=== PATIENT | female | born 1960 | race Caucasian/White ===

== ENCOUNTER → 2018-07-08 10:24 | Emergency (ER) | payer BC ==
[~2018-07-08 10:24] MED LIST: DiMENhydriNATE IV* 50 MG/ML VIAL IV PUSH ONE; Ketorolac INJ* 30 MG/ML 1 ML VIAL IV PUSH ONE; Lidocaine 1%* 5 ML VIAL ONE; Metoclopramide IV* 5 MG/ML 2 ML VIAL IV ONE; NS 0.9% 1000 ML* 1,000 ML IV ONE
--- OUTSIDE RECORDS SUMMARY | 2018-07-08 11:15 | XMS REPORT | Continuity of Care Document ---
:1960 External Reference #:[id number] Author Name Rikcy Crystal M.D. Address [address] [place] [address] Care Team Providers Name Role Phone Lucia Ye M.D. Primary Care Physician Unavailable Payers Type Date Identification Numbers Payment Provider Subscriber Policy Number: [id number] [place] [employer] Wendy Morel PayID: [id number] [address] [place] [address] Advance Directives Description No Information Available Problems Date Description Provider Status Onset: H/O: hypothyroidism Active Onset: 07/06/2018 Headache Ricky Crystal M.D. 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 ETOH Use Currently consumes alcohol Tobacco Use Start: Unknown End: Unknown Patient is a former smoker Recreational Drug Use Denies Drug Use Smoking Status Reviewed: 07/06/18 Patient is a former smoker Allergies, Adverse Reactions, Alerts Description No Known Drug Allergies Medications Medication Date Status Form Strength Qnty SIG Indications Ordering Provider Amoxicillin Active Capsules 500mg Unknown 000 Montelukast Active Tablets 10mg Unknown Sodium 000 Levothyroxine Active Tablets 175mcg Take 1 Unknown Sodium 000 Tablet By Mouth Daily Ibuprofen Active Tablets 200mg 3 tab at Unknown 000 bedtime po Immunizations Description No Information Available Vital Signs Description No Information Available Results Description No Information Available Procedures Description No Information Available Encounters Description No Information Available Plan of Treatment 07/06/2018 - Ricky Crystal M.D.R51 HeadacheComments:Smoking can increase the risk of developing or worsening any eye related disease, as well as affect your overall health. If you are a smoker, we strongly recommend that you quit.If you are not a smoker, we strongly recommend that you do not start. You have a headache that is not eye related. Please follow up with your primary care doctor. YOUR EYE EXAM IS HEALTHY.IN PARTICULAR, THERE IS NO EDEMA OFTHE OPTIC NERVES AND I CAN SEE GOOD BLOOD FLOW IN THE RETINAL BLOOD VESSELS ( SPONTANEOUS VENOUS PULSATIONS ARE PRESENT)I DO NOT SEE EVIDENCE OF INCREASED INTRACRANIAL PRESSURE BASED ON YOUR EYE EXAMBASED ON YOUR SYMPTOMS, I THINK IT IS GOOD TO FOLLOW THROUGH WITH THE BRAIN IMAGING. I WOULD PLAN TO RECHECK YOUR EYES IN 2 WEEKS. CALL THOUGH IF THERE IS ANY FURTHER CHANGES IN THE VISIONFollow up:2 Week Follow Up
--- NOTE | 2018-07-08 11:32 | ED ---
Headache - HPI Summary HPI Summary: This patient is a 58 year old female presenting to [facility] accompanied by with a chief complaint of headache and ear ringing for 3 weeks. Patient states that she also experiences neck stiffness and double vision. The headache is mostly frontal, but worse at the sides of her head. She also states that she is starting to experience numbness in the upper part of the face bilaterally. Patient has already received CT, CTA Head/Neck yesterday with Dr. Ye. The pain is rated 6/10 in severity. Symptoms aggravated by nothing. Symptoms alleviated by nothing. Patient additionally reports nausea. Patient denies SOB, fever. Patient and fear that this may be meningitis. Patient additionally notes that she was bitten by a mouse 6 weeks ago and fears it may also be related. - History Of Current Complaint Chief Complaint: EDHeadache Stated Complaint: RINGING IN EARS/HEADACHE/NUMBNESS ON RT SIDE FACE Time Seen by Provider: 07/08/18 10:35 Hx Obtained From: Patient Hx Last Menstrual Period: menopausal Onset/Duration: Gradual Onset, Started weeks ago, Still Present Initially Headache Was: Initial Pain Scale(0-10)= - 6 Timing: Constant Location of Headache: Frontal Aggravating Factor: Nothing Associated Signs And Symptoms: Negative - fever, SOB, Nausea - Allergies/Home Medications Allergies/Adverse Reactions: Allergies Allergy/AdvReac Type Severity Reaction Status Date / Time No Known Allergies Allergy Verified 07/07/18 13:45 Home Medications: Home Medications Amoxicillin 500 mg PO BID 07/08/18 [History Confirmed 07/08/18] Montelukast Sodium TAB* [Singulair 10 MG TAB*] 10 mg PO DAILY 07/08/18 [History Confirmed 07/08/18] PMH/Surg Hx/FS Hx/Imm Hx Previously Healthy: No Endocrine/Hematology History: Reports: Hx Thyroid Disease Denies: Hx Anticoagulant Therapy, Hx Diabetes Cardiovascular History: Denies: Hx Hypertension, Hx Pacemaker/ICD Respiratory History: Reports: Hx Asthma - CHILD, Other Respiratory Problems/ Disorders - states fluid lungs after surgery 06/05 History: Denies: Hx Renal Disease Musculoskeletal History: Reports: Other Musculoskeletal History - osteoarthritis left knee Denies: Hx Rheumatoid Arthritis, Hx Osteoporosis Sensory History: Denies: Hx Hearing Aid Psychiatric History: Denies: Hx Panic Disorder, Hx Substance Abuse - Cancer History Hx Chemotherapy: No Hx Radiation Therapy: No - Surgical History Surgery Procedure, Year, and Place: appy 06/10/12 ruptured. right wrist. spinal fusion. left shoulder. Right Total Knee Replacement - Immunization History Date of Influenza Vaccine: 03/2017 Infectious Disease History: No Infectious Disease History: Reports: Hx Hepatitis Denies: History Other Infectious Disease, Traveled Outside the [place] in Last 30 Days - Family History Known Family History: Negative: Cardiac Disease, Diabetes, Blood Disorder, Other - CA - Social History Lives: With Family Alcohol Use: Daily Alcohol Amount: Glass of wine with dinner Hx Substance Use: No Substance Use Type: Reports: None Hx Tobacco Use: Yes Smoking Status (MU): Former Smoker Review of Systems Negative: Fever ENT: Other - ear ringing Negative: Shortness Of Breath Positive: Nausea Neurological: Other - double vision Positive: Headache All Other Systems Reviewed And Are Negative: Yes Physical Exam - Summary Physical Exam Summary: Appearance: Well appearing, no pain distress Skin: warm, dry, reflects adequate perfusion Head/face: normal Eyes: EOMI, HERMAN ENT: mucous membranes moist Neck: supple, non-tender Respiratory: CTA, breath sounds present Cardiovascular: RRR, pulses symmetrical Abdomen: non-tender, soft Bowel Sounds: present Musculoskeletal: normal, strength/ROM intact Neuro: normal, sensory motor intact, A&Ox3, no nuchal rigidity Triage Information Reviewed: Yes Vital Signs On Initial Exam: Initial Vitals Temp Pulse Resp BP Pulse Ox 97.4 F 63 16 129/67 97 07/08/18 10:26 07/08/18 10:26 07/08/18 10:26 07/08/18 10:26 07/08/18 10:26 Vital Signs Reviewed: Yes Procedures - Lumbar Puncture Midline Position: Lateral Decubitus Aseptic Technique: Lidocaine Anesthesia Used: 1.0% Lido - 10cc Spinal Needle Used: 22 Gauge Lumbar Puncture Note: l3-l4, 6ccs of clear fluid Diagnostics - Vital Signs Vital Signs Temp Pulse Resp BP Pulse Ox 07/08/18 10:26 97.4 F 63 16 129/67 97 - Laboratory Diagnostic Studies Comment: CSF negative for organisms, glucose, protein negative. 1 WBC, RBC. Lab Statement: Any lab studies that have been ordered have been reviewed, and results considered in the medical decision making process. Re-Evaluation - Re-Evaluation First Eval Re-Evaluation Time: 12:23 Change: Improved Comment: Patient's condition is much improved. Her headache is much better and she agrees to be discharged. Headache Course/Dx - Course Course Of Treatment: Nurse's notes reviewed. Patient with CT/CTA of the head and neck yesterday and were negative. Chronic tinnitus for 1 month. Headache recently. No meningismus here. LP was performed and negative for inflammatory findings. Lyme CSF sent. This is pending. Treated headache with full relief. Discharged to follow up with primary care physician and neurology. - Diagnoses Differential Diagnosis/HQI/PQRI: Meningitis, Migraine, Sinus Headache, Tension Headache, Viral Syndrome Provider Diagnoses: Tinnitus, Headache Discharge - Sign-Out/Discharge Documenting (check all that apply): Patient Departure - Discharge Plan Condition: Stable Disposition: HOME Prescriptions: Promethazine TAB* [Phenergan Tab*] 25 mg PO Q8H PRN #20 tab PRN Reason: headache/nausea Patient Education Materials: Acute Headache (ED), Tinnitus (ED) Referrals: Lucia Ye MD [Primary Care Provider] - Bennie Landin MD [Medical Doctor] - Additional Instructions: Prescribed medication can cause drowsiness. If headache is severe use ibuprofen , Benadryl and caffeine along with it. Follow-up with Dr. Ye on Tuesday. She can follow the Lyme disease testing and other results. You're also given referral to Dr. Landin the neurologist. Call for an appointment. Return if worse, fevers, new symptoms, or other concerns. - Billing Disposition and Condition Condition: STABLE Disposition: Home - Attestation Statements Document Initiated by Jyoti: Yes Documenting Scribe: Vic Abel Provider For Whom Jyoti is Documenting (Include Credential): Froy Rae MD Scribe Attestation: Vic Bynum, scribed for Froy Rae MD on 07/08/18 at 1506. Scribe Documentation Reviewed: Yes Provider Attestation: The documentation as recorded by the Vic encarnacion accurately reflects the service I personally performed and the decisions made by me, Froy Rae MD Status of Scribe Document: Viewed
[2018-07-08 12:12] LABS: Body Fluid Source Cerebral Spinal
[2018-07-08 13:30] VITALS: BP 129/69
[2018-07-11 23:49] LABS: Lyme Disease Source CSF
== END | disposition home or self-care (01) ==
LOC: ED 10:24
DX: H93.19 Tinnitus, unspecified ear (principal); R51 Headache; R11.0 Nausea; Z87.891 Personal history of nicotine dependence
CPT/HCPCS: 36415; 62270; 82945; 84157; 86788; 86789; 87070; 87205; 87476; 87798; 87899; 89051; 96361; 96374; 96375; 99283; J1240; J1885; J2765

== ENCOUNTER 2018-07-23 09:08 | Emergency (ER) | payer BC ==
--- OUTSIDE RECORDS SUMMARY | 2018-07-23 09:20 | XMS REPORT | Continuity of Care Document ---
:1960 External Reference #:[id number] Author Name Ricky Crystal M.D. Address [address] [place] [address] Care Team Providers Name Role Phone Lucia Ye M.D. Primary Care Physician Unavailable Payers Type Date Identification Numbers Payment Provider Subscriber Policy Number: [id number] Staci Overton Wendy Morel PayID: [id number] [address] [place] [address] Advance Directives Description No Information Available Problems Date Description Provider Status Onset: H/O: hypothyroidism Active Onset: 07/06/2018 Headache Ricky Crystal M.D. 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 ETOH Use Currently consumes alcohol Tobacco Use Start: Unknown End: Unknown Patient is a former smoker Recreational Drug Use Denies Drug Use Smoking Status Reviewed: 07/20/18 Patient is a former smoker Allergies, Adverse Reactions, Alerts Description No Known Drug Allergies Medications Medication Date Status Form Strength Qnty SIG Indications Ordering Provider Amoxicillin Active Capsules 500mg Unknown 000 Montelukast Active Tablets 10mg Unknown Sodium 000 Levothyroxine Active Tablets 175mcg Take 1 Unknown Sodium 000 Tablet By Mouth Daily Ibuprofen Active Tablets 200mg 3 tab at Unknown 000 bedtime po Acetazolamide Active Tablets 250mg Take 1 Unknown 000 Tablet By Mouth Twice A Day Immunizations Description No Information Available Vital Signs Description No Information Available Results Description No Information Available Procedures Date Code Description Status 07/06/2018 07498 New Patient Comprehensive Exam Completed Encounters Description No Information Available Plan of Treatment 07/20/2018 - Ricky Crystal M.D.R51 HeadacheComments:Smoking can increase the risk of developing or worsening any eye related disease, as well as affect your overall health. If you are a smoker, we strongly recommend that you quit.If you are not a smoker, we strongly recommend that you do not start. YOUR EYE EXAM IS HEALTHY, THE NERVE AND RETINA LOOK HEALTHY.IN PARTICULAR, THERE IS NO EDEMA OF THE OPTIC NERVES AND I CAN STILL SEE GOOD BLOOD FLOW IN THE RETINAL BLOOD VESSELS (SPONTANEOUS VENOUS PULSATIONS ARE PRESENT) I DO NOT SEE EVIDENCE OF INCREASED INTRACRANIAL PRESSURE BASED ON YOUR EYE EXAM KEEP YOUR APPOINTMENT WITH YOUR NEUROLOGIST. CALLTHOUGH IF THERE IS ANY FURTHER CHANGES IN THE VISION.
[2018-07-23] MEDS ORDERED: NS 0.9% 1000 ML* 1,000 ML IV ONE (10:22)
[2018-07-23] MEDS ORDERED: Ketorolac INJ* 30 MG/ML 1 ML VIAL IV PUSH ONE ×2 (10:30→13:16)
[2018-07-23] MEDS ORDERED: DiMENhydriNATE IV* 50 MG/ML VIAL IV PUSH ONE (10:31)
[2018-07-23] MEDS ORDERED: Metoclopramide IV* 5 MG/ML 2 ML VIAL IV ONE (10:31)
[2018-07-23 10:55] LABS: ABS Basophils 0 10^3/ul (0-0.2); ABS Eosinophils 0.1 10^3/ul (0-0.6); ABS Lymphocytes 1.9 10^3/ul (1.0-4.8); ABS Monocytes 0.4 10^3/ul (0-0.8); ABS Neutrophils 2.5 10^3/ul (1.5-7.7); ABS Nucleated RBC 0 10^3/ul; Eosinophil % 1.3 %; Hematocrit 39 % (35-47); Hemoglobin 13.5 g/dl (12.0-16.0); Lymphocyte % 39.1 %; Mean Corpuscular HGB Conc 35 g/dl (31-36); Mean Corpuscular Hemoglobin 32 pg (27-31); Mean Corpuscular Volume 93 fL (80-97); Mean Platelet Volume 7.8 fL (7.4-10.4); Nucleated Red Blood Cells % 0; Platelet Count 257 10^3/ul (150-450); Red Blood Count 4.17 10^6/ul (4.00-5.40); Red Cell Distribution Width 13 % (10.5-15)
[2018-07-23 11:07] LABS: Activated Partial Thrombo Time 32.4 seconds (26.0-36.3); INR 1.07 (0.77-1.02)
[2018-07-23 11:11] LABS: Albumin 3.8 g/dL (3.2-5.2); Albumin/Globulin Ratio 1.4 (1-3); BUN/Creatinine Ratio 21.1 (8-20); Calcium 8.9 mg/dL (8.6-10.3); EGFR Non-African American 108.6 (>60); Globulin 2.7 g/dL (2-4); Potassium 3.6 mmol/L (3.5-5.0); Total Bilirubin 0.5 mg/dL (0.2-1.0); Total Protein 6.5 g/dL (6.4-8.9)
[2018-07-23 11:37] LABS: Erythrocyte Sed Rate 20 mm/Hr (0-30)
[2018-07-23] MEDS ORDERED: Ondansetron INJ* 2 MG/ML VIAL IV ONE (13:16)
[2018-07-23 15:39] VITALS: BP 112/70
--- NOTE | 2018-07-23 20:19 | CONS ---
CONSULTATION REPORT: DATE OF CONSULT: 07/23/18. PATIENT OF: Dr. Lucia Ye and MARTA Watson, in the ER today.* HISTORY OF PRESENT ILLNESS: Amna is a 58-year-old right-handed woman I am asked to evaluate for a 6-week history of unusual headache. This has involved her right frontal and temporal area with going back and involves her occiput and her neck as well as there is no pain below her eye. The pain has gradually worsened over the past 6 weeks' time and now occasionally gets up to 8/10 with some photophobia, but typically is 5/10, it is often throbbing at this point occasionally. She has had 4 episodes of brief, very sharp, quick pain lasting a minute or less in that distribution. She has some photophobia with this and occasionally has some nausea. Since this began within a few days of onset of the headache, she has developed a pulsatile tinnitus on that right side and that has been constant and steady, perhaps slightly worse over the past 6 weeks. Within a week of headache onset, she has developed double vision, which she described as seeing objects one above the other rather than [id number]. This has not changed. Of note, she has been bit by a mouse about 8 weeks ago. There have been no unusual other exposures and she has been to [facility], but not out of the country recently. There has been no fever or shortness of breath. She has had an extensive workup, which I have reviewed, included a normal CTA and MRI of the orbit, face, neck with and without contrast, which I reviewed and was normal. The CT of the head and neck was normal. She has had a spinal tap with normal CSF and opening pressure, which is not clearly noted in the chart today that I could see, but the is a physician who is there and said that the opening pressure was 60. She has had an eye exam by an filling station equipment mechanic, which is not revealing. She has had Lyme studies and other tick studies that were all negative with a sed rate of 20. ERICA, rheumatoid factor a year ago, which was normal, but has not been repeated. Babesiosis study, which was negative recently. Cryptococcal antigen and West Nile studies all normal. She received 4 days of Diamox without benefit. PAST MEDICAL HISTORY: Completely benign. PAST SURGICAL HISTORY: Has had no surgeries. MEDICATIONS: She is on no medicines other than the Diamox that she has had. Recently, she has been under some stress but that has been chronic. ALLERGIES: She has no known allergies. SOCIAL HISTORY: No substance abuse. PHYSICAL EXAM: Blood pressure 119/67, pulse 69. She is afebrile. She is alert and oriented with normal speech and comprehension. Cranial nerves II through XII were intact. There was no ptosis. There was no change in sensation in her face. The only findings on ophthalmological on cranial nerves exam, she had a minor right exotropia. It is unclear whether this is new or not. When she looked down to either the right or left, she has had a double vision with objects appearing above each other; however, when looking straight ahead there was double vision side-by- side, looking up into the right there was double vision, but not when she looked up into the left. She has had no tearing by history. Motor exam revealed normal tone, strength, coordination. Tygmdv-uk-ywed is intact. Sensation intact to light touch. Reflexes were 1+ and equal. Downgoing toes. Chest: Clear. Cardiovascular: Regular rate and rhythm. Abdomen: Soft. Positive bowel sounds. She had no rashes. IMPRESSION AND PLAN: I discussed with them that this is a difficult case to sort out. It is possible that there is some problem in the cavernous sinus. It could have been missed even on MRI scan and spinal tap though these are some of the best tests. To do the CTA is also a reassuring test for many possible etiologies. I will be getting LEOBARDO and requested a PPD. We should repeat an ERICA and rheumatoid factor. I think these will be normal. Her exam is a little bit unusual in that it does not follow a clear neurologic pattern, she switches from having some double vision [id number] to double vision up and down and it is possible that this is not organically based, but may be stress related. It is hard to be sure and she does have a mild exotropia, although it is hard to know if this is new or old, the fact that when looking to the right in the direction of her exotropia, she had worse double vision on upper gaze than to the left makes me unsure of the significance of this finding. At this point, I am going to send this blood work, begin a low dose of Elavil to go to 20 mg at bedtime. This could help migrainous symptoms as well as some of the neuralgic symptoms that she is having. This may be some unusual form of a migraine with sympathetic features without the ptosis. It does not appear to be something like a Raeder's syndrome. Given the complexity of the case, I am going to have the neuro-filling station equipment mechanic, Dr Jordyn Barretoor her partner to take a look at her before proceeding further. I discussed this with family that depending on how things go, we may consider a trial of steroids, but I would not do that at this point until we get further information. Thank you for sharing her case. [id number]/[facility] #: [id number] TORSTEN
--- NOTE | 2018-07-24 05:35 | ED ---
Headache - HPI Summary HPI Summary: Patient is a 58yo F with no signficant PMH presenting to the ED with acute onset intermittent mainly frontal and R sided URBINA x 6 weeks. She was seen in the ED 2 weeks ago and LP performed. Subsequently she had a CTA and MRI both which were negative. She continues to have pulsatile tinnitus on the right side which has been present x 6 weeks. Today, she endorses 1 episode of a "pop " sensation to the R temporal area in which the tinnitus ceased and the URBINA became worse. With the episodes over the past 6 weeks, she has also been endorsing blurry vision and double vision and extreme photosensitivity. She denies recent international travel, known tick bites. She had received diamox without relief. LP opening pressure on 07/08/18 was 16 (normal) according to Butch CHUA and . - History Of Current Complaint Chief Complaint: EDHeadache Stated Complaint: HEADACHE/DOUBLE VISION/HEARD POP IN HEAD Time Seen by Provider: 07/23/18 10:09 Hx Obtained From: Patient Hx Last Menstrual Period: menopausal Onset/Duration: Sudden Onset Initially Headache Was: "Worst Headache Ever", Initial Pain Scale(0-10)= - 8 Currently Pain Is: Current Pain Scale(0-10)= - 5 Timing: Constant - with moments of reduction Character: Throbbing, Pressure Aggravating Factor: Nothing Allevating Factors: Nothing Associated Signs And Symptoms: Negative - Risk Factors SAH Risk Factors: Negative Meningitis Risk Factors: Negative SDH Risk Factors: Negative Temporal Arteritis Risk Factors: Female, - Allergies/Home Medications Allergies/Adverse Reactions: Allergies Allergy/AdvReac Type Severity Reaction Status Date / Time No Known Allergies Allergy Verified 07/07/18 13:45 PMH/Surg Hx/FS Hx/Imm Hx Previously Healthy: Yes Endocrine/Hematology History: Reports: Hx Thyroid Disease Denies: Hx Anticoagulant Therapy, Hx Diabetes Cardiovascular History: Denies: Hx Hypertension, Hx Pacemaker/ICD Respiratory History: Reports: Hx Asthma - CHILD, Other Respiratory Problems/ Disorders - states fluid lungs after surgery 06/05 History: Denies: Hx Renal Disease Musculoskeletal History: Reports: Other Musculoskeletal History - osteoarthritis left knee Denies: Hx Rheumatoid Arthritis, Hx Osteoporosis Sensory History: Denies: Hx Hearing Aid Psychiatric History: Denies: Hx Panic Disorder, Hx Substance Abuse - Cancer History Hx Chemotherapy: No Hx Radiation Therapy: No - Surgical History Surgery Procedure, Year, and Place: appy 06/10/12 ruptured. right wrist. spinal fusion. left shoulder. Right Total Knee Replacement - Immunization History Date of Influenza Vaccine: 03/2017 Hx Pertussis Vaccination: No Immunizations Up to Date: Yes Infectious Disease History: No Infectious Disease History: Reports: Hx Hepatitis Denies: History Other Infectious Disease, Traveled Outside the [place] in Last 30 Days - Family History Known Family History: Negative: Cardiac Disease, Diabetes, Blood Disorder, Other - CA - Social History Occupation: Unemployed, Employed Part-time Lives: With Family Alcohol Use: None Alcohol Amount: Glass of wine with dinner Hx Substance Use: No Substance Use Type: Reports: None Hx Tobacco Use: Yes Smoking Status (MU): Former Smoker Review of Systems Constitutional: Negative Negative: Fever, Chills, Fatigue, Skin Diaphoresis Positive: Photophobia, Blurred Vision, Diplopia. Negative: Drainage, Erythema Negative: Sore Throat, Ear Ache, Nasal Discharge Negative: Palpitations, Chest Pain Negative: Shortness Of Breath, Cough Genitourinary: Negative Positive: no symptoms reported, see HPI Positive: Bruising. Negative: Rash Positive: Headache. Negative: Weakness - Rajan problem, Paresthesia, Numbness , Syncope - is 3 All Other Systems Reviewed And Are Negative: Yes Physical Exam Triage Information Reviewed: Yes Vital Signs On Initial Exam: Initial Vitals Temp Pulse Resp BP Pulse Ox 96.9 F 66 14 127/62 97 07/23/18 09:11 07/23/18 09:11 07/23/18 09:11 07/23/18 09:11 07/23/18 09:11 Vital Signs Reviewed: Yes Appearance: Positive: Ill-Appearing, Pain Distress Skin: Positive: Skin Color Reflects Adequate Perfusion Head/Face: Positive: Normal Head/Face Inspection Eyes: Positive: EOMI, HERMAN, Conjunctiva Clear Neck: Positive: Supple, No Lymphadenopathy Respiratory/Lung Sounds: Positive: Clear to Auscultation, Breath Sounds Present Cardiovascular: Positive: RRR, Pulses are Symmetrical in both Upper and Lower Extremities. Negative: Leg Edema Left, Leg Edema Right Musculoskeletal: Positive: Normal, Strength/ROM Intact Neurological: Positive: Sensory/Motor Intact, Alert, Oriented to Person Place, Time, CN Intact II-III, Reflexes Intact, Normal Gait, Babinski Bilateral - normal, Finger to Nose - intact, Facial Symmetry, Speech Normal. Negative: Facial Droop, Slurred Speech, Dysphagia Psychiatric: Positive: Normal, Affect/Mood Appropriate AVPU Assessment: Alert - Agnes Coma Scale Best Eye Response: 4 - Spontaneous Best Motor Response: 6 - Obeys Commands Best Verbal Response: 5 - Oriented Coma Scale Total: 15 Diagnostics - Vital Signs Vital Signs Temp Pulse Resp BP Pulse Ox 07/23/18 15:37 97 F 70 16 112/70 94 07/23/18 15:08 73 112/70 94 07/23/18 15:00 82 95 07/23/18 14:38 74 122/64 95 07/23/18 14:08 69 119/67 93 07/23/18 14:00 68 94 07/23/18 13:08 120/74 07/23/18 13:00 57 95 07/23/18 12:38 61 114/71 96 07/23/18 12:33 63 133/76 98 07/23/18 12:08 54 89/71 99 07/23/18 12:00 60 95 07/23/18 11:38 48 112/61 95 07/23/18 11:08 54 116/62 94 07/23/18 11:00 76 97 07/23/18 10:09 56 97 07/23/18 10:08 129/78 07/23/18 09:11 96.9 F 66 14 127/62 97 - Laboratory Lab Results: Lab Results 07/23/18 07/23/18 07/23/18 Range/Units 10:41 10:41 10:41 WBC 5.0 (3.5-10.8) 10^3/ul RBC 4.17 (4.00-5.40) 10^6/ul Hgb 13.5 (12.0-16.0) g/dl Hct 39 (35-47) % MCV 93 (80-97) fL MCH 32 H (27-31) pg MCHC 35 (31-36) g/dl RDW 13 (10.5-15) % Plt Count 257 (150-450) 10^3/ul MPV 7.8 (7.4-10.4) fL Neut % (Auto) 49.8 % Lymph % (Auto) 39.1 % Mellette % (Auto) 9.0 % Eos % (Auto) 1.3 % Baso % (Auto) 0.8 % Absolute Neuts (auto) 2.5 (1.5-7.7) 10^3/ul Absolute Lymphs (auto) 1.9 (1.0-4.8) 10^3/ul Absolute Monos (auto) 0.4 (0-0.8) 10^3/ul Absolute Eos (auto) 0.1 (0-0.6) 10^3/ul Absolute Basos (auto) 0 (0-0.2) 10^3/ul Absolute Nucleated RBC 0 10^3/ul Nucleated RBC % 0 ESR 20 (0-30) mm/Hr INR (Anticoag Therapy) 1.07 H (0.77-1.02) APTT 32.4 (26.0-36.3) seconds Carbon Monoxide Screen (<4.0) % Sodium 138 (135-145) mmol/L Potassium 3.6 (3.5-5.0) mmol/L Chloride 105 (101-111) mmol/L Carbon Dioxide 26 (22-32) mmol/L Anion Gap 7 (2-11) mmol/L BUN 12 (6-24) mg/dL Creatinine 0.57 (0.51-0.95) mg/dL Est GFR ( Amer) 131.4 (>60) Est GFR (Non-Af Amer) 108.6 (>60) BUN/Creatinine Ratio 21.1 H (8-20) Glucose 101 H (70-100) mg/dL Calcium 8.9 (8.6-10.3) mg/dL Total Bilirubin 0.50 (0.2-1.0) mg/dL AST 14 (13-39) U/L ALT 10 (7-52) U/L Alkaline Phosphatase 67 (34-104) U/L Total Protein 6.5 (6.4-8.9) g/dL Albumin 3.8 (3.2-5.2) g/dL Globulin 2.7 (2-4) g/dL Albumin/Globulin Ratio 1.4 (1-3) Rheumatoid Factor (<15) IU/mL 07/23/18 07/23/18 Range/Units 10:41 15:37 WBC (3.5-10.8) 10^3/ul RBC (4.00-5.40) 10^6/ul Hgb (12.0-16.0) g/dl Hct (35-47) % MCV (80-97) fL MCH (27-31) pg MCHC (31-36) g/dl RDW (10.5-15) % Plt Count (150-450) 10^3/ul MPV (7.4-10.4) fL Neut % (Auto) % Lymph % (Auto) % Mellette % (Auto) % Eos % (Auto) % Baso % (Auto) % Absolute Neuts (auto) (1.5-7.7) 10^3/ul Absolute Lymphs (auto) (1.0-4.8) 10^3/ul Absolute Monos (auto) (0-0.8) 10^3/ul Absolute Eos (auto) (0-0.6) 10^3/ul Absolute Basos (auto) (0-0.2) 10^3/ul Absolute Nucleated RBC 10^3/ul Nucleated RBC % ESR (0-30) mm/Hr INR (Anticoag Therapy) (0.77-1.02) APTT (26.0-36.3) seconds Carbon Monoxide Screen <4.0 (<4.0) % Sodium (135-145) mmol/L Potassium (3.5-5.0) mmol/L Chloride (101-111) mmol/L Carbon Dioxide (22-32) mmol/L Anion Gap (2-11) mmol/L BUN (6-24) mg/dL Creatinine (0.51-0.95) mg/dL Est GFR ( Amer) (>60) Est GFR (Non-Af Amer) (>60) BUN/Creatinine Ratio (8-20) Glucose (70-100) mg/dL Calcium (8.6-10.3) mg/dL Total Bilirubin (0.2-1.0) mg/dL AST (13-39) U/L ALT (7-52) U/L Alkaline Phosphatase (34-104) U/L Total Protein (6.4-8.9) g/dL Albumin (3.2-5.2) g/dL Globulin (2-4) g/dL Albumin/Globulin Ratio (1-3) Rheumatoid Factor < 10 (<15) IU/mL Result Diagrams: 07/23/18 10:41 07/23/18 10:41 Lab Statement: Any lab studies that have been ordered have been reviewed, and results considered in the medical decision making process. Headache Course/Dx - Course Course Of Treatment: During this course of treatment, I have given patient dramamine as we are out of IV Benadryl and given toradol 30mg and reglan all x 2. This reduced sxs, but still remains. I have asked for a consult by Dr. Trammell, neurologist who see patient in the ED. I was asked to order LEOBARDO, ERICA , RF, and PPD levels/tests for further workup. Lyme results are negative. We will refer her to Opthomologist in [place] and she will continue to follow up with our neurologists as well. - Diagnoses Differential Diagnosis/HQI/PQRI: CVA, TIA, Migraine, Temporal Arteritis, Tension Headache Provider Diagnoses: Headache, Diplopia - Physician Notifications Discussed Care Of Patient With: Anuel Trammell Instructed by Provider To: MD Will See In ED Discharge - Sign-Out/Discharge Documenting (check all that apply): Patient Departure - Discharge Plan Condition: Stable Disposition: HOME Prescriptions: Amitriptyline TAB* [Elavil TAB*] 10 mg PO BEDTIME #30 tab Referrals: Lucia Ye MD [Primary Care Provider] - Jeremias Ruiz MD [Medical Doctor] - Anuel Trammell MD [Medical Doctor] - Additional Instructions: Jordyn Barreto in [place], [place] Address: [facility], [address] [place] [address] Please follow up with neurology also as scheduled Amitryptiline 5mg x 3 days; 10mg x 3 days then 20mg daily until you see specialist - Billing Disposition and Condition Condition: STABLE Disposition: Home
[2018-07-26 14:37] LABS: TB Mitogen minus Nil Result 7.33 IU/mL; TB Nil Result 0.01 IU/mL; TB1 Ag minus Nil Result 0 IU/mL
== END 2018-07-23 15:37 | disposition home or self-care (01) ==
LOC: ED 09:08
DX: R51 Headache (principal); H53.2 Diplopia; Z96.651 Presence of right artificial knee joint; Z87.891 Personal history of nicotine dependence
CPT/HCPCS: 36415; 80053; 82164; 82375; 85025; 85610; 85652; 85730; 86038; 86431; 86480; 96361; 96374; 96375; 96376; 99284; J1240; J1885; J2405; J2765